=== PATIENT | female | born 1995 | race Caucasian/White ===

== ENCOUNTER 2017-11-05 23:50 | Inpatient (IN) | payer OTHER ==
[~2017-11-05] VITALS: Ht 165.1 cm; Wt 53.2 kg
--- NOTE | 2017-11-05 23:54 | NUR ---
PT DANNIE ALS. TAKEN TO BED 4
[2017-11-06] VITALS: BP 110/58
--- NOTE | 2017-11-06 00:08 | NUR ---
PT BIB LA/FD C/O POSSIBLE OD ON UNK AMOUNT OFF SEROQUEL OR LORAZEPAM, ETOH, CANNABIS. PT DENIES ANY SUICIDAL ISEATION AT THIS TIME. 20GA LT HAND BY LA/FD HX SI, ANXIETY PT STS " I TOOK 15 LORAZEPAM 0.5MG AT DINNER TIME 19:00. I JUST WANTED TO CHILL OUT." UA DONE. Addendum: 11/06/17 at 0042 by [email or web address] IDEATION
[2017-11-06] MEDS ORDERED: NACL 0.9% 1,000 ML IV ONE (00:25)
[2017-11-06] MEDS ORDERED: QUET25TA PO (00:26)
[2017-11-06] MEDS ORDERED: ATI.5 PO (00:26)
--- NOTE | 2017-11-06 00:35 | NUR ---
EKG DONE, POISON CONTROL CALLED. I SPOKE TO TIAN AT POISON CONTROL-NO MEDS NEED. GET CMP, CBC, UA, UDS.
--- NOTE | 2017-11-06 00:35 | NUR ---
HGG-NEG, LAB AT BEDSIDE-BLOOD SENT TO LAB
[2017-11-06 00:50] LABS: BASOPHILS # (AUTO) 0.5 K/uL (0.00-0.22); BASOPHILS % (AUTO) 4.2 % (0.0-2.0); EOSINOPHILS # (AUTO) 0.2 K/uL (0-0.4); EOSINOPHILS % (AUTO) 1.5 % (0.0-4.0); HEMATOCRIT 37.1 % (36-48); HEMOGLOBIN 12.4 g/dL (12.0-16.0); LYMPHOCYTES # (AUTO) 2.4 K/uL (2.5-16.5); LYMPHOCYTES % (AUTO) 22.3 % (20.5-51.1); MEAN CORPUSCULAR HEMOGLOBIN 30 pg (27-31); MEAN CORPUSCULAR HGB CONC 33 g/dL (33-37); MEAN CORPUSCULAR VOLUME 89.6 fL (80-94); MONOCYTES # (AUTO) 0.7 K/uL (0.8-1.0); MONOCYTES % (AUTO) 6.7 % (1.7-9.3); NEUTROPHILS # (AUTO) 7.1 K/uL (1.8-7.7); NEUTROPHILS % (AUTO) 65.3 % (42.2-75.2); PLATELET COUNT (AUTO) 277 K/uL (140-450); RED BLOOD CELL COUNT(AUTO) 4.14 MIL/uL (4.20-5.40); RED CELL DISTRIBUTION WIDTH 12.3 % (11.6-13.7); WHITE BLOOD COUNT (AUTO) 10.9 K/uL (4.8-10.8)
[2017-11-06 01:03] LABS: ANION GAP 17.2 (8-16); CARBON DIOXIDE 22.5 mmol/L (21-32); CREATININE 0.7 mg/dL (0.6-1.3); POTASSIUM 3.7 mmol/L (3.5-5.1)
[2017-11-06 01:06] LABS: BARBITURATE, URINE NEG. ng/ml (NEG <=200); BENZODIAZEPINE, URINE NEG. ng/mL (NEG <=200); CANNABINOID, URINE NEG. ng/mL (NEG <=50); COCAINE, URINE NEG. ng/mL (NEG <=300); OPIATE, URINE NEG. ng/mL (NEG <=2000); PHENCYCLIDINE SCREEN,URINE NEG. ng/mL (NEG <=25)
[2017-11-06 01:10] LABS: ALBUMIN 3.3 g/dL (3.4-5.0); TOTAL BILIRUBIN 0.3 mg/dL (0.0-1.0)
[2017-11-06 01:12] LABS: SALICYLATE < 2.8 mg/dL (2.8-20.0)
[2017-11-06 01:15] LABS: CREATINE KINASE MB 0.3 ng/mL (0-3.6)
[2017-11-06] MEDS ORDERED: ACETAMINOPHEN 325 MG TAB PO PRN (01:40)
[2017-11-06] MEDS ORDERED: ONDANSETRON 4 MG/2 ML VIAL IVP PRN (01:40)
[2017-11-06 02:19] LABS: APPEARANCE,URINE CLEAR (CLEAR); BILIRUBIN,URINE NEGATIVE (NEGATIVE); BLOOD, URINE TRACE-L (NEGATIVE); COLOR,URINE YELLOW (YELLOW); LEUKOCYTE ESTERASE ,URINE NEGATIVE (NEGATIVE); NITRITE, URINE NEGATIVE (NEGATIVE); UGLUCOSE NEGATIVE (NEGATIVE)
[2017-11-06 02:22] LABS: PROTHROMBIN TIME 10.4 secs (10.8-13.4)
[2017-11-06 02:24] LABS: CHOL/HDL RATIO 2.3 (1-4.5); FREE T4 (FREE THYROXINE) 1.11 ng/dL (0.76-1.46); MAGNESIUM 1.7 mg/dL (1.8-2.4); PHOSPHORUS 3.3 mg/dL (2.5-4.9); THYROID STIMULATING HORMONE 3.32 uIU/mL (0.34-3.74)
[2017-11-06] MEDS ORDERED: LORazepam 2 MG/ML VIAL IVP PRN ×2 (02:35→03:15)
--- NOTE | 2017-11-06 02:52 | NUR ---
PT RESTING IN BED, ASLEEP. NO S/S OF DISTRESS NOTED AT THE MOMENT.
[2017-11-06 02:54] LABS: RBC,URINE 0-5 (RARE) /HPF (0-5); WBC,URINE 0-5 (RARE) /HPF (0-5)
[2017-11-06] MEDS: NACL 0.9% 1,000 ML IV SCH ×3 (03:10→13:01)
--- NOTE | 2017-11-06 03:15 | NUR ---
PT TRANSFERRED TO ICU FROM ED VIA GURNEY WITH 2 NURSES. RECEIVED BEDSIDE REPORT. PT VERY LETHARGIC, VERBALLY RESPONSIVE BUT UNABLE TO UNDERSTAND. BILATERAL LUNG SOUND CLEAR. S1,S2 PRESENT, BOWEL SOUND PRESENT ALL [address] QUADS. SKIN IS INTACT[address] ON THE MONITOR. PERIPHERAL LINE TO LEFT HAND 20G. NO ACUTE DISTRESS NOTED. WILL CONTINUE TO MONITOR.
--- NOTE | 2017-11-06 03:20 | NUR ---
APatient will be admitted to care of DR ALICEA. Admited to TELE/ICU CONVIENCE. Will go to room 1. Belongings list completed. Report to KEILY TUTTLE.
[2017-11-06] MEDS ORDERED: MAG SULF 2000 MG/WATER PREMIX 50 ML IV SCH (03:30)
[2017-11-06 04:00] VITALS: BP 100/48
--- NOTE | 2017-11-06 04:30 | NUR ---
PT IS IN ASLEEP, LETHARGIC AT THIS TIME. NO ACUTE RESPIRATORY DISTRESS NOTED. ST ON THE MONITOR. NO COMPLAIN ABOUT PAIN OR DISCOMFORT. WILL CONTINUE TO MONITOR.
[2017-11-06] MEDS: LORazepam 1 MG TAB PO SCH ×2 (05:00→13:00)
[2017-11-06 05:09] LABS: EOSINOPHILS # (AUTO) 0.2 K/uL (0-0.4); LYMPHOCYTES # (AUTO) 2.8 K/uL (2.5-16.5); MONOCYTES # (AUTO) 0.8 K/uL (0.8-1.0)
--- NOTE | 2017-11-06 05:10 | NUR ---
RECEIVED ORDER FROM , [facility]
[2017-11-06 05:27] LABS: ANION GAP 12.5 (8-16); CARBON DIOXIDE 24.4 mmol/L (21-32); CREATININE 0.6 mg/dL (0.6-1.3); POTASSIUM 3.9 mmol/L (3.5-5.1)
[2017-11-06 05:33] LABS: MAGNESIUM 2.7 mg/dL (1.8-2.4); PHOSPHORUS 4.3 mg/dL (2.5-4.9)
[2017-11-06 05:56] LABS: BASOPHILS # (AUTO) 0.3 K/uL (0.00-0.22); BASOPHILS % (AUTO) 2.9 % (0.0-2.0); EOSINOPHILS % (AUTO) 1.8 % (0.0-4.0); HEMATOCRIT 35.3 % (36-48); HEMOGLOBIN 11.8 g/dL (12.0-16.0); LYMPHOCYTES % (AUTO) 24.9 % (20.5-51.1); MEAN CORPUSCULAR HEMOGLOBIN 30 pg (27-31); MEAN CORPUSCULAR HGB CONC 33 g/dL (33-37); MEAN CORPUSCULAR VOLUME 88.9 fL (80-94); MONOCYTES % (AUTO) 7.4 % (1.7-9.3); NEUTROPHILS # (AUTO) 7.3 K/uL (1.8-7.7); PLATELET COUNT (AUTO) 320 K/uL (140-450); RED BLOOD CELL COUNT(AUTO) 3.97 MIL/uL (4.20-5.40); RED CELL DISTRIBUTION WIDTH 12.3 % (11.6-13.7); WHITE BLOOD COUNT (AUTO) 11.4 K/uL (4.8-10.8)
--- NOTE | 2017-11-06 06:20 | NUR ---
PT IS IN ASLEEP, RESPONSIVE TO VOICE, LETHARGIC AT THIS TIME. NO ACUTE RESPIRATORY DISTRESS NOTED. SR ON THE MONITOR. NO COMPLAIN ABOUT PAIN OR DISCOMFORT. WILL CONTINUE TO MONITOR.
--- NOTE | 2017-11-06 07:12 | NUR ---
RECEIVED BEDSIDE REPORT FROM ANNEALER HELPER RN, PATIENT IS OBSERVED SLEEPING, AAOX4, ABLE TO FOLLOW SIMPLE COMMANDS, ABLE TO MAKE NEEDS KNOWN. SKIN IS INTACT, SHE HAS A PERIPHERAL IV SITE TO LEFT HAND, ASYMPTOMATIC, INTACT, PATENT. ST ON MONITOR, ON ROOM AIR. DENIES ANY NAUSEA OR VOMITING, DENIES ANY PAIN AT THIS TIME. CALL LIGHT WITHIN REACH, HOB IS SEMI FOWLERS IN LOWEST POSSIBLE POSITION, WILL CONTINUE TO MONITOR.
[2017-11-06 08:00] VITALS: BP 128/74
[2017-11-06] MEDS ORDERED: FOLIC ACID 1 MG TAB PO SCH (09:00)
[2017-11-06] MEDS ORDERED: MULTIVITAMIN 1 TAB PO SCH (09:00)
[2017-11-06] MEDS ORDERED: THIAMINE 100 MG TAB PO SCH (09:00)
[2017-11-06] MEDS ORDERED: DOCUSATE SODIUM 100 MG GELCAP PO SCH (09:00)
--- NOTE | 2017-11-06 09:07 | NUR ---
PATIENT IS AWAKE FOR MORNING MEDS, STATES THAT SHE FEELS A LITTLE DEHYDRATED. I PROVIDED HER WITH WATER AND ORANGE JUICE. DENIES ANY PAIN, NAUSEA, OR VOMITING AT THIS TIME. NO SIGNS OF ACUTE DISTRESS NOTED. CALL LIGHT WITHIN REACH. WILL CONTINUE TO MONITOR.
--- NOTE | 2017-11-06 09:19 | NUR ---
PATIENT'S MOTHER CALLED, UPDATED ON PATIENT'S CONDITION.
--- NOTE | 2017-11-06 09:57 | NUR ---
CALLED PATIENT'S MOTHER, UPDATED HER ON PATIENT'S CONDITION. MOTHER PROVIDED INFORMATION REGARDING PATIENT'S PSYCHIATRIST IN [place] NECK, WHERE PATIENT IS FROM. PATIENT'S PREVIOUS PSYCHIATRIST FOR THE PAST 3 YEARS IS DOMO ZAVALA TEL: [phone]
--- NOTE | 2017-11-06 10:12 | NUR ---
PATIENT HAS BEEN SCREENED AND CATEGORIZED LOW NUTRITION RISK. PATIENT WILL BE SEEN WITHIN 7 DAYS OF ADMISSION. 11/12/[address]
--- NOTE | 2017-11-06 11:15 | NUR ---
PATIENT'S BOYFRIEND IS AT BEDSIDE, UPDATED ON PATIENT'S CONDITION. PATIENT IS IN ACUTE DISTRESS AT THIS MOMENT AFTER BEING TOLD THAT HER PARENTS WANT HER TO GO HOME TO [place] AFTER HER STAY IN THE HOSPITAL. PATIENT STATES SHE IS HAVING AN ANXIETY ATTACK. ADMINISTERED ATIVAN 2MG PRN FOR ANXIETY.
[2017-11-06 12:00] VITALS: BP 148/82
[2017-11-06] MEDS ORDERED: CALCIUM GLUCONATE 10% 1000 MG/10 ML VIAL ONE (12:27)
[2017-11-06] MEDS ORDERED: CALCIUM GLUCONATE 10% 1,000 MG in NACL 0.9% 50 ML IV SCH (12:30)
--- NOTE | 2017-11-06 14:00 | NUR ---
PATIENT IS OBSERVED SLEEPING AT THIS TIME, VS STABLE. PATIENT'S BOYFRIEND IS AT BEDSIDE.
--- NOTE | 2017-11-06 15:02 | NUR ---
CM NOTE PER FRANCHISE DEVELOPMENT MANAGER STALIN, SHE SPOKE WITH [facility] PH# [phone] [employer] WHO SAID TO FAX REVIEWS TO [phone], AND THERE IS NO ASSIGNED CM AT THIS TIME, PENDING AUTH# [id number].
--- NOTE | 2017-11-06 15:57 | NUR ---
DR. JAMES AND STUDENT PSYCHOLOGIST IN TO SEE AND EXAMINE PATIENT,UPDATED ON PATIENT'S CONDITION. WILL FOLLOW UP ON ANY ORDERS.
[2017-11-06 16:00] VITALS: BP 122/71
--- NOTE | 2017-11-06 17:54 | NUR ---
PATIENT IS DISCHARGED HOME WITH SCHOOL CRISTIAN AND BOYFRIEND. NO SIGNS OF DISTRESS NOTED.
[2017-11-06] MEDS ORDERED: QUEtiapine FUMARATE 25 MG TAB PO SCH (21:00)
[2017-11-06] MEDS ORDERED: LORazepam 1 MG TAB PO SCH (21:00)
== END 2017-11-06 17:50 | disposition home or self-care (01) | DRG 917 ==
LOC: MED 23:50 → MIC 11-06 01:48
PROVIDERS: ADMIT Family Medicine Sports Medicine; ATTEND Family Medicine Sports Medicine
DX: T42.4X1A Poisoning by benzodiazepines, accidental (unintentional), initial encounter (principal); G92 Toxic encephalopathy; E44.0 Moderate protein-calorie malnutrition; Z68.1 Body mass index [BMI] 19.9 or less, adult; F10.129 Alcohol abuse with intoxication, unspecified; E83.42 Hypomagnesemia; F12.90 Cannabis use, unspecified, uncomplicated; F41.0 Panic disorder [episodic paroxysmal anxiety]; Z81.3 Family history of other psychoactive substance abuse and dependence; Z91.5 Personal history of self-harm; Z88.5 Allergy status to narcotic agent; Y92.89 Other specified places as the place of occurrence of the external cause; D72.829 Elevated white blood cell count, unspecified; R73.9 Hyperglycemia, unspecified; E83.51 Hypocalcemia
CPT/HCPCS: 36415; 71045; 80048; 80053; 80305; 81001; 81025; 82150; 82550; 82553; 83036; 83690; 83735; 83880; 84100; 84439; 84443; 84484; 85025; 85610; 85730; 87081; 93005; 96360; 96361; 99285; G0480; G0482; J0610; J2060; J3475; J7030; Q0092